=== PATIENT | female | born 1960 | race Caucasian/White ===

== ENCOUNTER → 2019-02-10 | Outpatient (CLI) | payer BC ==
--- NOTE | 2019-02-10 12:44 | Diagnostic Imaging Report ---
EXAMINATION: Bilateral feet. INDICATION: Bilateral foot pain. Three views of each foot were obtained. There are no prior studies available for comparison. FINDINGS: There is no fracture, dislocation, or acute bony abnormality evident. There is moderate degenerative disease involving the PIP and DIP joints of each digit of each foot. The Lisfranc joints appear well maintained. There are small calcaneal spurs bilaterally. The soft tissues are unremarkable. IMPRESSION: There is no evidence for an acute bony abnormality of either foot. Dictated by: Dictated on workstation # [id number]
== END ==
LOC: RAD 12:01
PROVIDERS: ATTEND Nurse Practitioner Family
DX: M79.672 Pain in left foot (principal); M79.671 Pain in right foot

== ENCOUNTER → 2019-04-05 | Outpatient (CLI) | payer BC | LOC: CARD 10:40 | PROVIDERS: ATTEND Internal Medicine Cardiovascular Disease | DX: I10 Essential (primary) hypertension (principal); E78.2 Mixed hyperlipidemia; R00.2 Palpitations; R06.09 Other forms of dyspnea | CPT/HCPCS: 93306; 93351 ==

== ENCOUNTER → 2019-09-28 | Outpatient (CLI) | payer BC, OTHER ==
[~2019-09-28] MED LIST: BARIUM for suspension 96% w/w (Vanilla Silq Medium Density) PO ONE; BARIUM for suspension 98% w/w (Vanilla Silq High Density) PO ONE
--- NOTE | 2019-09-28 11:14 | Diagnostic Imaging Report ---
INDICATION: Dysphasia. Patient ingested effervescent crystals as well as thin and thick barium and imaging of the esophagus was performed. 1 minute and 10 seconds of fluoroscopic time was utilized. The esophagus has a smooth contour. No mass or stricture is identified. No hiatal hernia or gastroesophageal reflux was demonstrated. IMPRESSION: Unremarkable esophagram. Dictated by: Dictated on workstation # [id number]
== END ==
LOC: RAD 08:54
PROVIDERS: ATTEND Family Medicine
DX: R13.12 Dysphagia, oropharyngeal phase (principal)
CPT/HCPCS: 74220

== ENCOUNTER → 2019-11-08 | Outpatient (CLI) | payer OTHER ==
[~2019-11-08] MED LIST changes: -BARIUM for suspension 96% w/w (Vanilla Silq Medium Density) PO ONE; -BARIUM for suspension 98% w/w (Vanilla Silq High Density) PO ONE; +HOLD METFORMIN - RECEIVED CONTRAST 20 ML VIAL IV SCH; +IOHEXOL 350 MG/ML 100 ML (OMNIPAQUE 350) VIAL IV ONE; +NS 100 ML (IVPB) BAG IV ONE
[2019-11-08 08:58] LABS: BUN/CREATININE RATIO 16; CREATININE SERUM 0.82 MG/DL (0.60-1.30); GFR ESTIMATED > 60
--- NOTE | 2019-11-08 11:02 | Diagnostic Imaging Report ---
PROCEDURE: CT neck soft tissue with contrast. TECHNIQUE: Multiple contiguous axial images were obtained through the neck after the administration of contrast. Auto Exposure Controls were utilized during the CT exam to meet ALARA standards for radiation dose reduction. INDICATION: Right-sided ear pain and TMJ pain with swelling under the jaw. COMPARISON: No prior studies are available for comparison. FINDINGS: The visualized intracranial structures are unremarkable. The posterior nasopharynx, oropharynx, and larynx are unremarkable. The bilateral submandibular and parotid glands appear to be symmetric. No thyroid mass is detected. No definite cervical lymphadenopathy is detected. The visualized paranasal sinuses are clear. The mastoid air cells are well aerated. The bilateral temporomandibular joints are unremarkable. Imaging through the upper chest does show questionable pericardial fluid, not entirely included on this study. IMPRESSION: 1. Essentially unremarkable CT soft tissue neck study with contrast. No acute feature is detected. 2. Findings suggestive of pericardial effusion. Dictated by: Dictated on workstation # [id number]
== END ==
LOC: RAD 08:23
PROVIDERS: ATTEND Otolaryngology Otolaryngology/Facial Plastic Surgery
DX: H92.01 Otalgia, right ear (principal); M26.621 Arthralgia of right temporomandibular joint
CPT/HCPCS: 36415; 70491; 82565; 84520

== ENCOUNTER 2019-11-24 10:24 | Outpatient (RCR) | payer OTHER ==
[2020-02-09] MEDS ORDERED: PANT40TA2 PO (12:31)
== END 2020-02-22 | disposition home or self-care (01) ==
LOC: CARD 10:24
PROVIDERS: ATTEND Physician Assistant
DX: I10 Essential (primary) hypertension (principal); E78.2 Mixed hyperlipidemia; R06.09 Other forms of dyspnea; R00.2 Palpitations
CPT/HCPCS: 93225; 93226

== ENCOUNTER 2019-11-29 09:08 | Day surgery (SDC) | payer OTHER ==
[~2019-11-29] VITALS: Ht 165 cm; Wt 65.0 kg
[2019-11-29] MEDS ORDERED: HEParin (CATH LAB) 2,000 ML IV ONE (09:14)
[2019-11-29] MEDS ORDERED: LIDOCAINE 1% INJ 20 ML 20 ML VIAL ONE (09:14)
[2019-11-29] MEDS ORDERED: NS IV 1000 ML 1,000 ML ONE (09:14)
[2019-11-29] MEDS ORDERED: NS IV 1000 ML 1,000 ML IV SCH ×2 (09:15→11:58)
[2019-11-29 09:40] LABS: BILIRUBIN,URINE NEGATIVE (NEGATIVE); CLARITY,URINE CLEAR; COLOR,URINE YELLOW; GLUCOSE, URINE (UA) NEGATIVE (NEGATIVE); KETONES,URINE NEGATIVE (NEGATIVE); LEUKOCYTE ESTERASE ,URINE TRACE (NEGATIVE); NITRITE,URINE NEGATIVE (NEGATIVE); PH,URINE 7.5 (5-9); PROTEIN,URINE NEGATIVE (NEGATIVE)
[2019-11-29 09:41] LABS: MEAN PLATELET VOLUME 12.1 FL (7.4-10.4); RED CELL DISTRIBUTION WIDTH 13.7 % (10.0-14.5); WHITE BLOOD COUNT 4.5 10^3/uL (4.3-11.0)
[2019-11-29 09:42] VITALS: BP 117/73
--- OUTSIDE RECORDS SUMMARY | 2019-11-29 09:50 | XMS REPORT | Continuity of Care Document ---
Author Organization Unknown Address Unknown Phone Unavailable Allergies Active Description Code Type Severity Reaction Onset Reported/Identified Relationship to Patient Clinical Status Yes No Known Drug Allergies [id number] Drug Allergy Unknown N/A 09/28/2019 Medications There is no data. Problems Date Dx Coded Attending Type Code Diagnosis Diagnosed By 02/14/2019 MAAME BARTON APRN Ot M79.671 PAIN IN RIGHT FOOT 02/14/2019 MAAME BARTON APRN Ot M79.672 PAIN IN LEFT FOOT 03/13/2019 MAAME BARTON APRN Ot M79.671 PAIN IN RIGHT FOOT 03/13/2019 MAAME BARTON APRN Ot M79.672 PAIN IN LEFT FOOT 04/20/2019 MARGO ULRICH MD Ot E78. 2 MIXED HYPERLIPIDEMIA 04/20/2019 MARGO ULRICH MD Ot I10 ESSENTIAL (PRIMARY) HYPERTENSION 04/20/2019 MARGO ULRICH MD Ot R00. 2 PALPITATIONS 04/20/2019 MARGO ULRICH MD Ot R06. 09 OTHER FORMS OF DYSPNEA 06/16/2019 W E53.8 B12 deficiency Gregorio, Bailee 06/16/2019 W H92.01 Ear ache, right Gregorio, Bailee 06/16/2019 W J30.89 Oth er allergic rhinitis Gregorio, Bailee 06/16/2019 W J31.2 Sore throat, chronic Gregorio, Bailee 09/26/2019 MAAME BARTON APRN Ot M79.671 PAIN IN RIGHT FOOT 09/26/2019 MAAME BARTON APRN Ot M79.672 PAIN IN LEFT FOOT 09/26/2019 MARGO ULRICH MD Ot E78. 2 MIXED HYPERLIPIDEMIA 09/26/2019 MARGO ULRICH MD Ot I10 ESSENTIAL (PRIMARY) HYPERTENSION 09/26/2019 MARGO ULRICH MD Ot R00. 2 PALPITATIONS 09/26/2019 MARGO ULRICH MD Ot R06. 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 Results Test Result Range [id number] - 11/08/19 08:38 Serum or plasma urea nitrogen measurement (mass/volume ) 13 mg/dL 7-18 Serum or plasma creatinine measurement (mass/volume) 0.82 mg/dL 0.60-1.30 Serum or plasma urea nitrogen/creatinine mass ratio 16 NRG Serum or plasma creatinine measurement w ith calculation of estimated glomerular filtration rate > NRG Automated blood complete blood count (he mogram) panel - 11/29/19 09:34 Blood leukocytes automated count (number/volume) 4.5 10*3/uL 4.3-11.0 Blood erythrocytes automated count (number/volume) 4.81 10*6/uL 4.35-5.85 Venous blood hemoglobin measurement (mass/volume) 14.0 g/dL 11.5-16.0 Blood hematocrit (volume fraction) 42 % 35-52 Automated erythrocyte mean corpuscular volume 87 [ foz_us] 80-99 Automated erythrocyte mean corpuscular h emoglobin (mass per erythrocyte) 29 pg 25-34 Automated erythrocyte mean corpuscular h emoglobin concentration measurement (mass/volume) 34 g/dL 32-36 Automated erythrocyte distribution width ratio 13. 7 % 10.0- 14.5 Automated blood platelet count (count/volume) 164 10*3/uL 130-400 Automated blood platelet mean volume measurement 12.1 [foz_us] 7.4-10.4 Encounters ACCT No. Visit Date/Time Discharge Status Pt. Type Provider Facility Loc./Unit Complaint [id number] 02/10/2019 09:25:47 02/10/2019 23:59:5 9 CLS Outpatient [id number] 11/24/2019 10:24:00 23:59:59 CLS Outpatient NAEEM CORONA [facility] CARD HTN [id number] 11/08/2019 08:23:00 23:59:59 CLS Outpatient JOHN CARDENAS MD [facility] RAD R EAR PAIN,TEMPEROMADIB ULAR JOINT PAIN [id number] 09/28/2019 08:54:00 23:59:59 CLS Outpatient LYLY LEZAMA, TUCKER Bryant [facility] RAD DYSPHAGIA [id number] 04/05/2019 10:40:00 23:59:59 CLS Outpatient SERG LEZAMA, MARGO Castillo [facility] CARD PALPITATION [id number] 02/10/2019 12:01:00 23:59:59 CLS Outpatient MAAME BARTON APRN [facility] RAD FOOT PAIN [id number] 11/29/2019 11:00:00 P EN Preadmit SERG LEZAMA, MARGO Castillo [facility] CATH CP,DYSPNEA,PALPITATIONS
[2019-11-29 09:59] LABS: ALANINE AMINOTRANSFERASE 13 U/L (0-55); ALBUMIN 4.4 GM/DL (3.2-4.5); ALKALINE PHOSPHATASE 64 U/L (40-136); BILIRUBIN,TOTAL 0.5 MG/DL (0.1-1.0); BUN/CREATININE RATIO 17; CALCIUM 9.3 MG/DL (8.5-10.1); CARBON DIOXIDE 25 MMOL/L (21-32); CHLORIDE 107 MMOL/L (98-107); CHOLESTEROL 217 MG/DL (< 200); CREATININE SERUM 0.81 MG/DL (0.60-1.30); GFR ESTIMATED > 60; GLUCOSE 97 MG/DL (70-105); HDL CHOLESTEROL 73 MG/DL (40-60); POTASSIUM 4.1 MMOL/L (3.6-5.0); SODIUM 140 MMOL/L (135-145); TOTAL PROTEIN 7.3 GM/DL (6.4-8.2); TRIGLYCERIDES 70 MG/DL (<150); VLDL CHOLESTEROL 14 MG/DL (5-40)
--- NOTE | 2019-11-29 10:05 | Diagnostic Imaging Report ---
Indication: Chest pain Portable chest 9:46 AM Heart size and pulmonary vascularity are normal. Lungs are clear. There are no effusions or pneumothoraces. IMPRESSION: Negative chest Dictated by: Dictated on workstation # [id number]
[2019-11-29 10:07] LABS: BACTERIA,URINE NEGATIVE /HPF
[2019-11-29 10:11] LABS: INR 0.9 (0.8-1.4); PROTHROMBIN TIME PATIENT 12.4 SEC (12.2-14.7)
[2019-11-29] MEDS ORDERED: NITRO DRIP 25000 MCG/D5W 250 ML IV ONE (11:02)
[2019-11-29] MEDS ORDERED: MIDAZOLAM 5 MG/5 ML (VERSED) VIAL ONE (11:02)
[2019-11-29] MEDS ORDERED: HEParin 1000 UNIT/ML (10ML VIAL) FOR BOLUS ONE (11:02)
[2019-11-29] MEDS ORDERED: VERAPAMIL 5 MG/2 ML (CALAN) VIAL IV ONE (11:02)
[2019-11-29] MEDS ORDERED: fentaNYL INJECTION 100 MCG/2 ML AMP ONE (11:02)
--- NOTE | 2019-11-29 11:19 | Cardiac Procedure Note-CS/ASA ---
Pre-Procedure Note Pre-Op Procedure Note H&P Reviewed The H&P was reviewed, patient examined and no changes noted. Date H&P Reviewed: Nov 29, 2019 Time H&P Reviewed: 11:19 Conscious Sedation Pre-Proced Time 11:19 ASA Score 3 For ASA 3 and 4: Consider anesthesia and medical clearance. Also, for patients with a history of failed moderate sedation consider anesthesia. Airway Lungs Heart ASA score ASA 1: a normal healthy patient ASA 2: a patient with a mild systemic disease (mid diabetes, controlled hypertension, obesity x ASA 3: a patient with a severe systemic disease that limits activity (angina, COPD, prior Myocardial infarction) ASA 4: a patient with an incapacitating disease that is a constant threat to life (CHF, renal failure) ASA 5: a moribund patient not expected to survive 24 hrs. (ruptured aneurysm) ASA 6: a declared brain- patient whose organs are being harvested. For emergent operations, add the letter E after the classification Mallampati Classification Grade 3 Sedation Plan Analgesia, Amnesia, Plan communicated to team members, Discussed options with patient/fam, Discussed risks with patient/fam The patient is an appropriate candidate to undergo the planned procedure, sedation, and anesthesia. The patient immediately re-assessed prior to indication. MARGO ULRICH MD Nov 29, 2019 11:19
[2019-11-29] MEDS ORDERED: NS 100 ML (IVPB) BAG IV ONE (12:15)
[2019-11-29] MEDS ORDERED: IOHEXOL 350 MG/ML 100 ML (OMNIPAQUE 350) VIAL IV ONE (12:15)
[2019-11-29] MEDS ORDERED: HOLD METFORMIN - RECEIVED CONTRAST 20 ML VIAL IV SCH (12:15)
[2019-11-29 12:30] VITALS: BP 120/76
[2019-11-29 12:45] VITALS: BP 131/77
[2019-11-29 13:00] VITALS: BP 115/65
[2019-11-29 13:15] VITALS: BP 129/66
--- NOTE | 2019-11-29 13:15 | Diagnostic Imaging Report ---
PROCEDURE: CT angiography of the chest with contrast. TECHNIQUE: Multiple contiguous axial images were obtained through the chest after uneventful bolus administration of intravenous contrast. 3D reconstructed CTA MIP acquisitions were also performed. Auto Exposure Controls were utilized during the CT exam to meet ALARA standards for radiation dose reduction. INDICATION: Anomalous circumflex artery. Evaluate for aortic root/thoracic aortic dissection. COMPARISON: CT soft tissue neck performed on 11/08/2019. ANGIOGRAPHIC FINDINGS: No acute aortic abnormality is demonstrated on this study performed without cardiac gating. The aorta is normal in course and caliber. There is no dissection, aneurysm, or ulcerated plaque. The great vessels are normal in course and caliber. Incidental note is made of a common origin of the left common carotid and brachiocephalic arteries, a normal anatomic variant. Please note the coronary arteries are not well evaluated on this study. The right and left coronary artery origins appear to be normally located, with the right coronary artery arising from the right cusp of the aortic valve and the left coronary artery arising from the left cusp of the aortic valve. Smaller coronary artery branches are not well delineated. The celiac, superior mesenteric and renal arteries are patent. 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 FINDINGS - CHEST: TRACHEA AND MAIN BRONCHI: Patent without evidence of tracheal or endobronchial lesion. LUNGS AND PLEURA: Mild dependent subsegmental atelectasis. There is a benign calcified granuloma in the medial segment of the right middle lobe. No suspicious pulmonary nodule, mass or focal consolidation. No pleural effusion or pneumothorax. MEDIASTINUM AND REKHA: Visualized thyroid gland is normal. Scattered mildly prominent mediastinal lymph nodes are not enlarged by CT size criteria. These are nonspecific and may be reactive in nature. There is no adalberto lymphadenopathy. Calcified right hilar lymph nodes are compatible with prior granulomatous disease. Esophagus is nondistended. HEART: Heart is normal in size. No pericardial effusion. Prominent pericardial recesses are demonstrated in the superior mediastinum, similar in appearance to prior exam. DIAPHRAGM AND VISUALIZED UPPER ABDOMEN: Unremarkable. CHEST WALL: There is an irregular focal asymmetry in the outer, central to slightly upper left breast at posterior depth which measures approximately 1.8 x 1.9 x 1.7 cm (image 66 series 2; image 161 series 601). The chest wall is otherwise unremarkable. BONES: No acute osseous abnormality. IMPRESSION - VASCULAR: No acute aortic abnormality on this study performed without cardiac gating. The thoracic aorta is nonaneurysmal. Please note the coronary arteries are not well evaluated on this exam, however, the right and left coronary arteries appear to originate from appropriate locations, without anomalous course. IMPRESSION - NON-VASCULAR: No acute cardiopulmonary process. There is an irregular focal asymmetry in the left breast, as detailed above. Further evaluation with diagnostic mammogram and left breast ultrasound is recommended. Chronic and incidental findings are detailed above. The above findings were discussed with Dr. Olivas on 11/29/2019 at 1305 hours. Dictated by: Dictated on workstation # [id number]
--- NOTE | 2019-11-29 13:20 | Discharge Inst-Post CATH ---
Discharge Inst-CATH/EP Problems Reviewed?: Yes Post Cardiac Cath/EP D/C Inst Follow Up/Plan Appointment with Dr. Olivas's office in one month <b>CARDIAC CATH/EP PROCEDURE DISCHARGE INSTRUCTIONS</b> ACTIVITY * Go Home directly and rest. * Limit activity of the leg (or wrist if it was used) for 7 days including aerobics, swimming, jogging, bicycling, etc. * Restrict stair-climbing for 7 days if possible, if not, climb up with your non-cath leg, then bring together on the same step. * Avoid lifting, pushing, pulling or excessive movement of the affected extremity for 7 days. * Customary sexual activity may be resumed after 2 days-use caution not to use a position that strains or causes pain to the affected extremity. * No driving for 24 hours. * NO SMOKING. * Avoid straining for bowel movements for 7 days. * Gentle walking on level ground is allowed. * Returning to work will depend on the type of procedure and the results. Your doctor will discuss this with you. CALL YOUR DOCTOR FOR ANY OF THE FOLLOWING: *If bleeding from the puncture site occurs- Apply gentle pressure to site with clean cloth and call your doctor or EMS. * If a knot or lump forms under the skin, increases in size, or causes pain. * If bruising appears to be worsening or moving further down your leg instead of disappearing. * Temperature above 101 F. CARE OF YOUR GROIN INCISION; * Bruising or purple discoloration of the skin near the puncture site is common. * You may shower only, no bathtub bathing for 5 days. Be careful to avoid slipping as your leg may feel stiff. * If a closure device was used on your femoral artery, please see the attached guide regarding care of the device and your leg. * Leave dressing on FOR 24 hours. CARE OF YOUR WRIST INCISION; * Bruising or purple discoloration of the skin near the puncture site is common. * You may shower. * DO NOT submerge wrist. * Leave dressing on FOR 24 hours. MARGO OLIVAS MD Nov 29, 2019 1:20 pm
[2019-11-29 13:30] VITALS: BP 136/76
--- NOTE | 2019-11-29 13:56 | Cardiac Cath Report ---
Cardiac Cath Report Physician (s)/Repairer [employer]ding Equipment (s) Physician MARGO ULRICH MD Pre-Procedure Diagnosis Pre-Procedure Diagnosis: chest pain Post-Procedure Note Procedure Start Date: Nov 29, 2019 Name of Procedure: Left heart catheterization Left ventriculogram Aortic root angiogram Aortic arch angiogram Findings/Procedure Note PROCEDURE NOTE: 58-year-old lady with recurrent chest pain, palpitations, shortness of breath, had been having worsening symptoms recently, decided to proceed with cardiac catheterization possible PTCA After explaining the procedure to the patient, all pros and cons were explained, all questions were answered. The patient signed the consent and then she was placed on the cardiac catheterization laboratory. Groin was prepped SL fashion local anesthesia was used. Sheath placed in the right radial artery, Clifford catheter was use advanced to the left ventricle The left ventriculogram was done, pullback LV to aorta was done, pressure was measured, intubated the left system and did angiogram, I could not visualize the circumflex artery with multiple views with multiple nonselective angiogram and did aortic root angiogram then turned the catheter to the right coronary artery and nonselective angiogram in the right cusp and selective angiogram in the right coronary artery then pulled a calculated aortic arch and aortic arch angiogram. At the end of the procedure the sheath was removed. Vascular event was used FINDINGS: Hemodynamics LV 90/11, end-diastolic pressure of 11 Aorta 89/56 mean of 71 ANATOMY: Left Main is free of obstructive disease Left Anterior Descending has mild disease nonobstructive disease Left Circumflex is absent, there is a very small artery coming off the proximal portion of the LAD. I perform CT angiogram of the thoracic aorta and could not see any circumflex artery Right Coronory Artery is dominant large artery with mild disease in the midportion nonobstructive disease LV Gram was done showing normal left ventricular size and systolic function estimated ejection fraction 60 percent Aorta evaluation done with aortic root and aortic arch angiogram Aortic root angiogram showed tricuspid valve normal size no dissection or aneurysm normal origin of the left main and the right coronary artery, circumflex artery was not visualized there is no separate origin was noted. Aortic arch angiogram was done showing normal aortic arch no dissection or aneurysm, normal brachiocephalic artery, normal left carotid and left subclavian arteries CONCLUSION: 1. Very small or absent circumflex artery otherwise large dominant right coronary artery with no significant obstructive disease 2. Normal left ventricular size and systolic function estimated ejection fraction 60 percent 3. Normal aortic root 4. Normal aortic arch and great vessels of the neck DISCUSSION AND RECOMMENDATION: She has been having chest pain, I perform CT angiogram of the thoracic aorta with IV contrast could not visualize any abnormal origin of any circumflex artery. No significant obstructive disease was noted. Incidentally left breast abnormality was reported and suggestion for mammogram by the radiologist. I discussed the management plan with Liz in Dr. Winchester's office and relied recommendation regarding the need for mammogram and EGD. Anesthesia Type: Conscious Sedation Estimated blood loss (mL): 15 ml Contrast Amount: 74 ml Total Radiation Dose: 152 mGy Post-Procedure Diagnosis Post-operative diagnosis: Chest pain Palpitation Dizziness Shortness of breath MARGO ULRICH MD Nov 29, 2019 13:56
--- NOTE | 2019-11-29 15:06 | NUR ---
BROWN BERNARDO demonstrates understanding of discharge instructions and accurately returns instructions upon questioning. Copy of Post-Discharge Instructions and Medication Discharge Instructions given to patient . BROWN BERNARDO is able to manage continuing needs after discharge. Patients belongings returned to patient. Skin dry and intact; Cardiac cath to R radial assessed et WNL. Patient discharged from [facility] on 11/29/19 at 1530. BROWN BERNARDO left floor ambulatory, accompanied by this RN et family member. Follow up care ordered for patient, patient voiced understanding in follow through with follow up care.
== END 2019-11-29 15:06 | disposition home or self-care (01) ==
LOC: CATH 09:08 → CSD 12:41 → CATH 15:06
PROVIDERS: ATTEND Internal Medicine Cardiovascular Disease
DX: R07.9 Chest pain, unspecified (principal); R06.02 Shortness of breath; R00.2 Palpitations; I10 Essential (primary) hypertension; E78.2 Mixed hyperlipidemia; F41.9 Anxiety disorder, unspecified; Z79.899 Other long term (current) drug therapy; Z80.0 Family history of malignant neoplasm of digestive organs
CPT/HCPCS: 36221; 71045; 71275; 80053; 80061; 81000; 85027; 85610; 85730; 87081; 93306; 93458; 93567; C1894; 36415

== ENCOUNTER → 2019-12-04 | Outpatient (CLI) | payer OTHER ==
--- NOTE | 2019-12-04 13:36 | Diagnostic Imaging Report ---
INDICATION: Left breast lump. COMPARISON: No prior mammograms are available for comparison. TECHNIQUE: 2D and 3D bilateral diagnostic mammography was performed with CAD. FINDINGS: Both breasts are heterogeneously dense, limiting the sensitivity of mammography. There are benign calcifications in both breasts. There is a lobulated mass in the upper and outer aspect of the left breast posterior depth at the area of palpable abnormality. This does contain some indeterminate microcalcifications. No other masses are seen. The axillae are unremarkable. IMPRESSION: A lobulated mass in the upper outer left breast posterior depth corresponding to the area of patient's palpable abnormality. Further evaluation of this area with ultrasound is recommended and will be performed today. ACR BI-RADS Category 0: Incomplete. (Needs additional imaging evaluation). Result letter will be mailed to the patient. Note: At least 10% of breast cancer is not imaged by mammography. Dictated by: Dictated on workstation # [id number]
--- NOTE | 2019-12-04 14:33 | Diagnostic Imaging Report ---
INDICATION: Palpable lump in the left breast. COMPARISON: Correlation is made with the diagnostic mammogram performed earlier this same day. FINDINGS: Sonographic interrogation of the upper outer left breast was performed. There is a lobulated hypoechoic mass at the 2 o'clock location of the left breast 9 cm from the nipple measuring 1.9 x 1.3 x 1.3 cm. This correlates with the density noted mammographically as well as the palpable abnormality. No internal vascularity is present. There is fairly robust posterior acoustic enhancement. This could represent a cyst versus fibroadenoma. No shadowing is present. No other masses are detected. IMPRESSION: Macrolobulated hypoechoic mass at the 2 o'clock location of the left breast 9 cm from the nipple corresponding with the mammographic and palpable abnormality. This does show posterior acoustic enhancement and is most consistent with a benign etiology. After discussion with the patient, the patient states that this has not changed for at least 6 years. Even so, due to absence of prior imaging, a followup left breast ultrasound in 6 months is recommended to show continued stability. ACR BI-RADS Category 3: Probably benign findings. Result letter will be mailed to the patient. Note: At least 10% of breast cancer is not imaged by mammography. Dictated by: Dictated on workstation # [id number]
== END ==
LOC: RAD 12:54
PROVIDERS: ATTEND Nurse Practitioner Family
DX: N63.20 Unspecified lump in the left breast, unspecified quadrant (principal)
CPT/HCPCS: 76642; 77066; G0279; 77062

== ENCOUNTER 2020-02-07 05:33 | Outpatient (RCR) | payer OTHER ==
[~2020-02-07] VITALS: Ht 165 cm; Wt 62.2 kg
== END 2020-02-07 10:39 | disposition home or self-care (01) ==
LOC: PREOP 05:33
PROVIDERS: ATTEND Surgery
DX: Z01.818 Encounter for other preprocedural examination (principal)
CPT/HCPCS: 87635

== ENCOUNTER 2020-02-09 11:29 | Day surgery (SDC) | payer OTHER ==
[~2020-02-09] VITALS: Ht 165 cm; Wt 62.2 kg
[2020-02-09] VITALS (11 sets, daily range): BP systolic 106–152; BP diastolic 64–82
[2020-02-09] MEDS ORDERED: NS IV 500 ML 500 ML ONE (11:35)
[2020-02-09] MEDS ORDERED: NS IV 1000 ML 1,000 ML IV STA (11:37)
[2020-02-09] MEDS ORDERED: HURRICAINE EXT TUBE (BENZOCAINE) XX PRN (11:45)
[2020-02-09] MEDS ORDERED: LIDOCAINE JELLY 2% 6 ML SYRINGE MM PRN (11:45)
[2020-02-09] MEDS ORDERED: MIDAZOLAM 5 MG/5 ML (VERSED) VIAL IV ONE (11:45)
[2020-02-09] MEDS ORDERED: fentaNYL INJECTION 100 MCG/2 ML AMP IVP ONE (11:45)
[2020-02-09] MEDS ORDERED: NS IV 500 ML 500 ML IV SCH (12:00)
--- NOTE | 2020-02-09 12:29 | Conscious Sedation/ASA ---
Conscious Sedation Pre-Proced Time 12:00 ASA Score 2 For ASA 3 and 4: Consider anesthesia and medical clearance. Also, for patients with a history of failed moderate sedation consider anesthesia. Airway Lungs Heart ASA score ASA 1: a normal healthy patient ASA 2: a patient with a mild systemic disease (mid diabetes, controlled hypertension, obesity ASA 3: a patient with a severe systemic disease that limits activity (angina, COPD, prior Myocardial infarction) ASA 4: a patient with an incapacitating disease that is a constant threat to life (CHF, renal failure) ASA 5: a moribund patient not expected to survive 24 hrs. (ruptured aneurysm) ASA 6: a declared brain- patient whose organs are being harvested. For emergent operations, add the letter E after the classification Mallampati Classification Grade 2 Sedation Plan Analgesia, Amnesia, Plan communicated to team members, Discussed options with patient/fam, Discussed risks with patient/fam The patient is an appropriate candidate to undergo the planned procedure, sedation, and anesthesia. The patient immediately re-assessed prior to indication. PIA INTERIANO MD Feb 09, 2020 12:29
[2020-02-09] MEDS ORDERED: ACETAMINOPHEN 325 MG TABLET PO PRN (12:30)
[2020-02-09] MEDS ORDERED: morphine INJ 10 MG/ML 1ML (SYR OR VIAL) IVP PRN ×2 (12:30)
[2020-02-09] MEDS ORDERED: ONDANSETRON 4 MG/2 ML (SDV) Z0FRAN IVP PRN (12:30)
[2020-02-09] MEDS ORDERED: HYDROcodone/APAP 5 MG/325 MG (LORTAB) TAB PO PRN (12:30)
--- NOTE | 2020-02-09 12:30 | Progress Note-Pre Operative ---
Pre-Operative Progress Note H&P Reviewed The H&P was reviewed, patient examined and no changes noted. Date Seen by Provider: Feb 09, 2020 Time Seen by Provider: 12:00 Date H&P Reviewed: Feb 09, 2020 Time H&P Reviewed: 12:00 Pre-Operative Diagnosis: PIA GOOD MD Feb 09, 2020 12:30
[2020-02-09] MEDS ORDERED: PANT40TA2 PO (12:31)
--- NOTE | 2020-02-09 12:32 | Discharge Inst-Surgical ---
D/C Lap Instructions-JAYDON New, Converted, or Re-Newed RX: RX on Chart Follow Up Appt in 2 weeks Activity as tolerated High Fiber Diet 25g or more per day Avoid Alcohol, Caffeine, Spicy [place] and Acid foods. Drink 64 fluid oz or more of fluids per day. Symptoms to Report: Fever over 101 degree F, Nausea/Vomiting If any problems/questions: Contact your physician or go to Emergency Room PIA INTERIANO MD Feb 09, 2020 12:32
[2020-02-09] MEDS ORDERED: LIDOCAINE JELLY 2% 6 ML SYRINGE ONE (13:18)
[2020-02-09] MEDS ORDERED: fentaNYL INJECTION 100 MCG/2 ML AMP ONE (13:19)
[2020-02-09] MEDS ORDERED: MIDAZOLAM 5 MG/5 ML (VERSED) VIAL ONE ×3 (13:19→13:38)
--- NOTE | 2020-02-09 13:55 | Progress Note-Post Operative ---
Post-Operative Progess Note Surgeon (s)/Time Study Clerk (s) Surgeon PIA INTERIANO MD Time Study Clerk: none Pre-Operative Diagnosis GERD Post-Operative Diagnosis reflux esophagitis(stage 2-3), small HH(1.5cm), moderate gastritis. mild chronic stage 2 ext and int hemorrhoids. Procedure & Operative Findings Date of Procedure 02/09/20 Procedure Performed/Findings EGD with bx. Colonoscopy. Anesthesia Type cs Estimated Blood Loss Estimated blood loss (mL): minimal Specimens/Packing Specimens Removed ge jxn, antrum PIA INTERIANO MD Feb 09, 2020 13:55
--- NOTE | 2020-02-09 21:18 | OPERATIVE REPORT ---
DATE OF SERVICE: 02/09/2020 ATTENDING PRIMARY CARE PHYSICIAN: Xohcitl Winchester MD PREOPERATIVE DIAGNOSES: Gastroesophageal reflux disease, screening colonoscopy. POSTOPERATIVE DIAGNOSES: Reflux esophagitis stage II, small hiatal hernia approximately 1.5 cm in size, mild to moderate gastritis, mild chronic stage II external and internal hemorrhoids, mild sigmoid diverticulosis. PROCEDURE: EGD with biopsy, colonoscopy. SURGEON: Pia Interiano MD. ANESTHESIA: Conscious sedation. ESTIMATED BLOOD LOSS: Minimal. FINDINGS: Reflux esophagitis stage II, small hiatal hernia approximately 1.5 cm in size, mild to moderate gastritis, mild chronic stage II external and internal hemorrhoids, mild sigmoid diverticulosis. DISPOSITION: The patient tolerated the procedure well. INDICATIONS: The patient is a 59-year-old female referred over to us for issues with gastroesophageal reflux disease. She states that this was worse several weeks ago and may have been related to her diet; however, she did feel epigastric burning sensation as well as crampy pain. She also is in need of a screening colonoscopy. She states that her last one was approximately 12 years ago. She is otherwise doing well, does not report any red blood per rectum nor any dark tarry stools as well as does not report any family history of colon cancer. DESCRIPTION OF PROCEDURE: The patient was brought to the endoscopy suite, laid in the left lateral decubitus position with head slightly elevated. After adequate IV pain and sedative medications and conscious sedation anesthesia, the mouthpiece was applied. The endoscope was placed in the mouth, visualizing the vocal cords, epiglottis and vallecula, which appeared normal. The endoscope was then gently intubated. esophageal opening and esophagus insufflated. Endoscope was then advanced through the first, second and third portion of esophagus at the level of GE junction. A reflux esophagitis between stage II and III identified. There were no formal ulcerations or any strictures. A biopsy was taken with forceps with visualization of good hemostasis. The endoscope was then advanced into the stomach and endoscope retroflexed, visualizing a small hiatal hernia approximately 1.5 to 2 cm in size. There was a moderate gastritis also noted and a biopsy was taken of the antrum to rule out H. pylori. Endoscope was then advanced through the pylorus and the first and second portions of the duodenum, which appeared normal and no duodenal ulcerations. The endoscope was then slowly withdrawn with taking a second look and suctioning of residual air with no additional findings. Under the same anesthesia, we then proceeded with colonoscopy portion of procedure. A digital rectal examination was performed, which revealed mild chronic stage II external and internal hemorrhoids. Normal suture tone was felt and there were no palpable masses. The endoscope was then intubated and the anus and rectum gently insufflated. The endoscope was then advanced through the valves of Lacy of the rectum with no polyps or any neoplasms identified. Through the sigmoid colon, a mild sigmoid diverticulosis identified. The endoscope was then advanced to the remainder of the descending, transverse and ascending colon to the cecum. These segments were normal. There were no polyps or any neoplasms identified throughout the colon or rectum. The endoscope was then slowly withdrawn while taking a second look and suctioning of residual air with no additional findings. The patient tolerated the procedure well. For her reflux esophagitis and small hiatal hernia as well as gastritis, we will recommend the necessary lifestyle and diet accommodation including small and more frequent meals, avoiding to eating at night as well as head elevation while lying supine. She also needs to avoid caffeinated beverages, spicy, greasy and acidic foods and we will also proceed with a trial of Protonix 40 mg daily. We will also recommend a high fiber diet with at least 25 grams of fiber daily as well as significant amounts of water to promote soft stools on a daily basis. She does not need another colonoscopy for another 10 years if asymptomatic. Job ID: [id number] DocumentID: [id number] Dictated Date: 02/09/2020 13:51:32 Mate Chief Date: 02/09/2020 21:17:30 Dictated By: PIA INTERIANO MD
== END 2020-02-09 15:20 | disposition home or self-care (01) ==
LOC: ENDO 11:29
PROVIDERS: ATTEND Surgery
DX: Z12.11 Encounter for screening for malignant neoplasm of colon (principal); K29.50 Unspecified chronic gastritis without bleeding; K21.00 Gastro-esophageal reflux disease with esophagitis, without bleeding; K64.1 Second degree hemorrhoids; K57.30 Diverticulosis of large intestine without perforation or abscess without bleeding; K44.9 Diaphragmatic hernia without obstruction or gangrene; Z79.899 Other long term (current) drug therapy; Z88.5 Allergy status to narcotic agent; Z80.1 Family history of malignant neoplasm of trachea, bronchus and lung; Z80.41 Family history of malignant neoplasm of ovary; Z82.49 Family history of ischemic heart disease and other diseases of the circulatory system

== ENCOUNTER → 2020-06-24 | Outpatient (CLI) | payer OTHER ==
[~2020-06-24] MED LIST changes: -HOLD METFORMIN - RECEIVED CONTRAST 20 ML VIAL IV SCH; -IOHEXOL 350 MG/ML 100 ML (OMNIPAQUE 350) VIAL IV ONE; -NS 100 ML (IVPB) BAG IV ONE; +PANT40TA2 PO
--- NOTE | 2020-06-24 10:04 | Diagnostic Imaging Report ---
INDICATION: Six-month followup left breast mass. COMPARISON: Left breast ultrasound from 12/04/2019. TECHNIQUE: Sonographic interrogation of the upper outer left breast at the 2 o'clock location was performed. FINDINGS: The lobulated hypoechoic mass at the 2 o'clock location 9 cm from the nipple is again noted. This has increased in size since the prior ultrasound from November. This now measures 2.9 x 1.7 x 2.8 cm compared with 1.9 x 1.3 x 1.3 cm. There are some internal echoes present within the lesion; however, no internal vascularity is identified. There continues to be posterior acoustic enhancement. No other masses are identified. IMPRESSION: Increase in size of the lobulated hypoechoic complex mass at the 2 o'clock location of the left breast 9 cm from the nipple when compared to the examination from 12/04/2019. This may represent an enlarging complex cyst; however, due to the lobulated borders and the change in size, tissue sampling is recommended. This would be amenable to an ultrasound-guided biopsy and aspiration. ACR BI-RADS Category 4: Suspicious abnormality. Dictated by: Dictated on workstation # [id number]
== END ==
LOC: RAD 09:30
PROVIDERS: ATTEND Family Medicine
DX: N63.21 Unspecified lump in the left breast, upper outer quadrant (principal)
CPT/HCPCS: 76642

== ENCOUNTER → 2020-06-27 | Outpatient (CLI) | payer OTHER ==
[~2020-06-27] MED LIST changes: +LIDOCAINE 1% INJ 20 ML 20 ML VIAL INJ ONE
--- NOTE | 2020-06-27 10:31 | Diagnostic Imaging Report ---
Indication: Status post left breast aspiration and biopsy. Unilateral left 2-D CC and ML mammography was performed post ultrasound guided aspiration and biopsy. There is a lobulated density with associated marker clip in the upper outer left breast. IMPRESSION: Marker clip is located within the upper outer left breast at the area of previously noted lobulated density. Dictated by: Dictated on workstation # [id number]
--- NOTE | 2020-06-27 14:34 | Diagnostic Imaging Report ---
Indication: Left breast mass. Patient presents for ultrasound-guided biopsy. Patient brought to the procedure and placed on table in the supine position. Ultrasound imaging of the left breast was performed valuate appropriate entry site. The skin of the left breast was then prepped and draped in usual sterile fashion. Small amount of 1% lidocaine was utilized for local anesthesia. 18-gauge needle was advanced into the hypoechoic mass at 2:00 location left breast, 9 cm from the nipple. Approximately 8 mL of bloody fluid was aspirated. There was complete collapse of the cyst. Next, 3 core biopsies were obtained through the collapsed cyst utilizing a 14-gauge achieve needle. Marker clip was then deployed. Hemostasis was obtained using manual compression. Patient tolerated the procedure well and left the department in stable condition. IMPRESSION: Successful ultrasound-guided cyst aspiration and biopsy at the 2:00 location left breast 9 cm from the nipple. Pathology results are currently pending. Dictated by: Dictated on workstation # [id number]
== END ==
LOC: RAD 09:00
PROVIDERS: ATTEND Family Medicine
DX: N63.21 Unspecified lump in the left breast, upper outer quadrant (principal)
CPT/HCPCS: 19083; 77065; A4648; G0279